=== PATIENT | female | born 1960 | race Caucasian/White ===

== ENCOUNTER 2016-12-10 23:18 | Inpatient (IN) | payer OTHER ==
[~2016-12-10] VITALS: Ht 176.5 cm; Wt 69.3 kg
[2016-12-10 23:20] VITALS: BP 159/74; PULSE 82; RESP 16; TEMP 98.1; O2SAT 96
[2016-12-11] MEDS ORDERED: TETANUS/DIPHTHERIA TOXOID ADULT 0.5 ML VIAL IM ONE
[2016-12-11] MEDS ORDERED: KETOROLAC TROMETHAMINE 30 MG/ML (IVP) VIAL IVP ONE
[2016-12-11] MEDS ORDERED: AMPICILLIN-SULBACTAM INJ 3 GM in SODIUM CHLORIDE 0.9% INJ 100 ML IV ONE ×2
--- NOTE | 2016-12-11 | PD ---
HPI Chief Complaint: Bite or Sting Time Seen by Provider: 23:50 Travel History International Travel<30 days: No Contact w/Intl Traveler<30days: No Traveled to known affect area: No History of Present Illness HPI 56yo F with PMH of CAD s/p cardiac stent, low WBC count presents to the ED with c/o increased pain and redness in her right hand. Pt was bit by her cat last night in both her right and left thumb and index finger but only the right arm is hurting. Pt states that within 24 hours, the redness and pain has traveled from her hand to past the elbow. Pt is unable to extend her right fingers. Denies any trauma, focal weakness, numbness, fever, chest pain, sob, n/v, abdominal pain. Pt is right handed. PFSH Past Medical History Hx Anticoagulant Therapy: Yes (ASA) Cardiovascular Problems: Yes (STENT) Past Surgical History Hysterectomy: Yes Social History Tobacco Use: No Allergies-Medications (Allergen,Severity, Reaction): Coded Allergies: No Known Allergies (Unverified , 12/10/16) Reported Meds & Prescriptions Reported Meds & Active Scripts Active Reported Bystolic (Nebivolol) 10 Mg Tab 10 Mg PO DIRECTED Benadryl Allergy (Diphenhydramine HCl) 25 Mg Cap 12.5 Mg PO DAILY Aspirin 81 Mg Chew 81 Mg CHEW DAILY Lipitor (Atorvastatin Calcium) 10 Mg Tab 10 Mg PO HS Review of Systems Except as stated in HPI: all other systems reviewed are Neg Physical Exam Narrative GENERAL: 56yo F in moderate distress. SKIN: Warm and dry. HEAD: Atraumatic. Normocephalic. NECK: Trachea midline. No JVD. CARDIOVASCULAR: Regular rate and rhythm. No murmur appreciated. RESPIRATORY: No accessory muscle use. Clear to auscultation. Breath sounds equal bilaterally. GASTROINTESTINAL: Abdomen soft, non-tender, nondistended. No rebound tenderness or guarding. MUSCULOSKELETAL: RUE: +Fusiform edema and redness in thumb and index finger with bite gifford on distal index finger and thumb. Erythema and pain trekking up radial aspect of right wrist, forearm, elbow to slightly past elbow joint. Pt is unable to extend her fingers. There is pain with passive extension of her fingers. TTP flexor tendons. Radial pulse intact. Sensation intact. Left hand: +Edema in left DIP of index finger with bite elyssa. NEUROLOGICAL: Awake and alert. No obvious cranial nerve deficits. Motor grossly within normal limits. Normal speech. PSYCHIATRIC: Appropriate mood and affect; insight and judgment normal. Data Data Last Documented VS Vital Signs Date Time Temp Pulse Resp B/P Pulse Ox O2 Delivery O2 Flow Rate FiO2 12/11/16 00:07 78 16 152/85 98 Room Air 12/10/16 23:20 98.1 Orders Basic Metabolic Panel (Bmp) (12/10/16 23:50) Complete Blood Count With Diff (12/10/16 23:50) Blood Culture (12/10/16 23:50) Ketorolac Inj (Toradol Inj) (12/11/16 00:00) Tetanus/Diphtheria Tox Adult (Tetanus/Di (12/11/16 00:00) Ampicillin-Sulbactam Inj (Unasyn Inj) (12/11/16 00:00) Lactic Acid Sepsis Protocol (12/10/16 23:50) Hand, Limited (2vws) (12/10/16 ) Hand, Limited (2vws) (12/10/16 ) Diphenhydramine Inj (Benadryl Inj) (12/11/16 00:45) Clindamycin Inj (Cleocin Inj) (12/11/16 01:00) Clindamycin Inj (Cleocin Inj) (12/11/16 09:00) Vancomycin Consult Pharmacy (Vancomycin (12/11/16 01:15) Admit To Inpatient (12/11/16 ) Vital Signs (Adult) Q4H (12/11/16 01:08) Activity Oob Ad Amanda (12/11/16 01:08) Diet Regular Basic (12/11/16 Breakfast) Sodium Chlor 0.9% 1000 Ml Inj (Ns 1000 M (12/11/16 01:08) Sodium Chloride 0.9% Flush (Ns Flush) (12/11/16 01:15) Sodium Chloride 0.9% Flush (Ns Flush) (12/11/16 09:00) Ondansetron Inj (Zofran Inj) (12/11/16 01:15) Bisacodyl Supp (Dulcolax Supp) (12/11/16 01:15) Comprehensive Metabolic Panel (12/12/16 06:00) Complete Blood Count With Diff (12/12/16 06:00) Scd Bilateral/Knee High MADISYN.BID (12/11/16 01:08) Darrell Bilateral/Knee High MADISYN.QSHIFT (12/11/16 01:08) Acetaminophen (Tylenol) (12/11/16 01:15) Acetamin-Hydrocod 325-5 Mg ([place] 5-325 (12/11/16 01:15) Morphine Inj (Morphine Inj) (12/11/16 01:15) Inpatient Certification (12/11/16 ) Atorvastatin (Lipitor) (12/11/16 21:00) Nebivolol (Bystolic) (12/11/16 09:00) Admit Order (Ed Use Only) (12/11/16 01:11) Labs Laboratory Tests Test 12/11/16 00:25 White Blood Count 7.3 TH/MM3 Red Blood Count 5.09 MIL/MM3 Hemoglobin 14.2 GM/DL Hematocrit 41.7 % Mean Corpuscular Volume 82.0 FL Mean Corpuscular Hemoglobin 28.0 PG Mean Corpuscular Hemoglobin 34.1 % Concent Red Cell Distribution Width 13.1 % Platelet Count 133 TH/MM3 Mean Platelet Volume 10.5 FL Neutrophils (%) (Auto) 73.3 % Lymphocytes (%) (Auto) 17.9 % Monocytes (%) (Auto) 7.4 % Eosinophils (%) (Auto) 0.9 % Basophils (%) (Auto) 0.5 % Neutrophils # (Auto) 5.4 TH/MM3 Lymphocytes # (Auto) 1.3 TH/MM3 Monocytes # (Auto) 0.5 TH/MM3 Eosinophils # (Auto) 0.1 TH/MM3 Basophils # (Auto) 0.0 TH/MM3 CBC Comment DIFF FINAL Differential Comment Sodium Level 142 MEQ/L Potassium Level 3.9 MEQ/L Chloride Level 109 MEQ/L Carbon Dioxide Level 25.9 MEQ/L Anion Gap 7 MEQ/L Blood Urea Nitrogen 14 MG/DL Creatinine 0.92 MG/DL Estimat Glomerular Filtration 63 ML/MIN Rate Random Glucose 100 MG/DL Lactic Acid Level 0.7 mmol/L Calcium Level 8.7 MG/DL MDM Medical Decision Making Medical Screen Exam Complete: Yes Emergency Medical Condition: Yes Differential Diagnosis Lymphangitis vs. flexor tenosynovitis vs. cellulitis Narrative Course 56yo F with right arm infection s/p cat bite 24 hours ago. Pt states the erythema spread quickly and pain worsened within last 3 hours. I was concern about flexor tenosynovitis so I consulted hand surgery Dr. Aly who states that it is early for flexor tenosynovitis and to admit pt to hospitalist, agreed with IV unasyn and elevate right upper extremity. Pt was given toradol 30mg IV for pain and reevaluated at bedside. Pt has improved and pt then informed me that after the tetanus injection, her throat and lips started to itch but it resolved on its own. At that time, pt had unasyn for a few minutes already. Pt now states her left arm is itchy so I stopped the unasyn. She had about half of the medicine already. Denies any sob and lungs were clear. Uvula midline with no swelling. No lip swelling. Mild erythema on left arm but no urticaria. Will give diphenhydramine 50mg IV. Will give clindamycin instead. Unsure if the reaction is from unasyn. Xray right hand showed no acute abnormality. Xray of left hand showed soft tissue swelling, specifically distal pointer finger. No radiopaque foreign body. Labs reviewed, no leukocytosis. Lactic acid 0.7. BMP unremarkable. Pt reevaluated after diphenhydramine and states itching resolved. Discussed with Dr. Sanchez and accepted for admission. Diagnosis Primary Impression: Cat bite of right hand with infection Qualified Code: S61.451A - Cat bite of right hand with infection, initial encounter Admitting Information Admitting Physician Requests: Admit Zoey Alvarado DO Dec 11, 2016 00:00
[2016-12-11 00:07] VITALS: BP 152/85; PULSE 78; RESP 16; O2SAT 98
[2016-12-11] MEDS ORDERED: BYST10TA2 PO (00:07)
[2016-12-11] MEDS ORDERED: BENA25CA4 PO (00:07)
[2016-12-11] MEDS ORDERED: ASPI81CH CHEW (00:07)
[2016-12-11] MEDS ORDERED: LIPI10TA PO (00:07)
--- NOTE | 2016-12-11 00:31 | RADRPT ---
EXAM DATE/TIME: 12/10/2016 23:56 [facility] COMPARISON: No previous studies available for comparison. INDICATIONS : Pt bitten by cat three hours ago. Redness, pain, and swelling up right arm from hand to forearm. MEDICAL HISTORY : None. SURGICAL HISTORY : None. ENCOUNTER: Initial ACUITY: 1 day PAIN SCORE: 9/10 LOCATION: Right hand FINDINGS: Two view examination of the right hand demonstrates no soft tissue swelling, dislocation, or fracture . The joint spaces are maintained. Bony mineralization is normal. CONCLUSION: No perceptible acute abnormality. Andre Kaiser MD on December 11, 2016 at 0:29 Board Certified Radiologist. This report was verified electronically.
--- NOTE | 2016-12-11 00:32 | RADRPT ---
EXAM DATE/TIME: 12/11/2016 00:03 [facility] COMPARISON: No previous studies available for comparison. INDICATIONS : Pt bitten by cat three hours ago. Redness, pain, and swelling to left hand. MEDICAL HISTORY : None. SURGICAL HISTORY : None. ENCOUNTER: Initial ACUITY: 1 day PAIN SCORE: 6/10 LOCATION: Left hand FINDINGS: Bones of the left hand are intact and normally aligned. No significant arthropathy seen. There does a ppear to be soft tissue swelling distally of the pointer finger. I don't see a radiopaque foreign bod y. CONCLUSION: 1. Apparent soft tissue swelling, specially distally the pointer finger. 2. No radiopaque foreign body or acute bony abnormality demonstrated. Andre Kaiser MD on December 11, 2016 at 0:30 Board Certified Radiologist. This report was verified electronically.
[2016-12-11 00:33] LABS: AUTOMATED NEUTROPHIL # 5.4 TH/MM3 (1.8-7.7); BASOPHIL % 0.5 % (0.0-2.0); EOSINOPHIL # 0.1 TH/MM3 (0-0.4); EOSINOPHIL % 0.9 % (0.0-4.0); HEMATOCRIT 41.7 % (35.0-46.0); HEMO FLAGS DIFF FINAL; LYMPH % 17.9 % (9.0-44.0); LYMPHOCYTE # 1.3 TH/MM3 (1.0-4.8); MEAN CORPUSCULAR HGB CONC 34.1 % (32.0-36.0); MONO % 7.4 % (0.0-8.0); NEUT % 73.3 % (16.0-70.0); PLATELET COUNT 133 TH/MM3 (150-450); RED BLOOD COUNT 5.09 MIL/MM3 (4.00-5.30); RED CELL DISTRIBUTION WIDTH 13.1 % (11.6-17.2); WHITE BLOOD COUNT 7.3 TH/MM3 (4.0-11.0)
[2016-12-11] MEDS ORDERED: diphenhydrAMINE HCL 50 MG/ML VIAL IV PUSH ONE (00:45)
[2016-12-11 00:59] LABS: BICARBONATE 25.9 MEQ/L (21.0-32.0); POTASSIUM 3.9 MEQ/L (3.5-5.1)
[2016-12-11] MEDS ORDERED: CLINDAMYCIN INJ 600 MG in SODIUM CHLORIDE 0.9% INJ 100 ML IV ONE (01:00)
[2016-12-11] MEDS ORDERED: BISACODYL 10 MG SUPP PR PRN (01:15)
[2016-12-11] MEDS ORDERED: ONDANSETRON HCL 4 MG/2 ML VIAL IVP PRN (01:15)
[2016-12-11] MEDS ORDERED: MORPHINE SULFATE 4 MG/ML INJ IV PRN (01:15)
[2016-12-11] MEDS ORDERED: Vancomycin Consult Pharmacy 1 EA OTHER SCH (01:15)
[2016-12-11] MEDS ORDERED: ACETAMINOPHEN/HYDROcodone 325 MG/5 MG TAB PO PRN (01:15)
[2016-12-11] MEDS ORDERED: SODIUM CHLORIDE 0.9% FLUSH 5 ML FLUSH FLUSH PRN (01:15)
[2016-12-11] MEDS ORDERED: VANCOMYCIN 1,000 MG/NS 250 ML IV ONE ×2 (02:00)
[2016-12-11] MEDS: SODIUM CHLOR 0.9% 1000 ML INJ 1,000 ML IV SCH ×3 (02:11→22:06)
--- NOTE | 2016-12-11 02:16 | HHI.HP ---
[facility] Admission Diagnosis Lymphangitis Diagnoses: (1) Cat bite of finger Diagnosis: Principal (2) Cellulitis Diagnosis: Principal (3) HTN (hypertension) Diagnosis: Principal (4) Thrombocytopenia Diagnosis: Principal Travel History International Travel<30 Days: No Contact w/Intl Traveler <30 Da: No Traveled to Known Affected Are: No History of Present Illness This is a 56-year-old female with a PMH of HTN and CAD s/p Stent who came to the ER w/ complaints of right hand and left finger pain after cat bite yesterday. Pt states her cat had gotten outside by accident and when she went to pick the cat up it got scared and bit her. Suffered bite to Right and Left Thumb/Index Finger. Right hand more swollen than right w/ erythema up right arm. Denies fever or chills. Cat up to date on all vaccines. On arrival, BP 159/74, HR 82, O2 sat 96% on RA, Afebrile. WBC normal. Platelets 133, no previous labs for comparison. Chemistry essentially unremarkable except for GFR of 63. Left Hand X-ray with no acute abnormality. Right Hand X-ray with apparent soft tissue swelling, especially distally pointer finger, no foreign body found. Dr. Aly consulted by ER physician, will evaluate in am. S/p Unasyn and Tetanus in ER, with subsequent itching and mild redness ? allergy to Unasyn vs Tetanus. S/p Benadryl w/ improvement. Switched to IV Clinda. Review of Systems Except as stated in HPI: all other systems reviewed are Neg ROS: 14 point review of systems otherwise negative. Past Family Social History Past Medical History PMH: HTN and CAD s/p Stent Past Surgical History PAST SURGICAL HISTORY: Hysterectomy Allergies: Coded Allergies: No Known Allergies (Unverified , 12/10/16) Family History PAST FAMILY HISTORY: Reviewed. No h/o DM or CAD Social History PAST SOCIAL HISTORY: Negative for alcohol, tobacco or drugs. Physical Exam Vital Signs Vital Signs Date Time Temp Pulse Resp B/P Pulse Ox O2 Delivery O2 Flow Rate FiO2 12/11/16 00:07 78 16 152/85 98 Room Air 12/11/16 00:00 73 15 12/10/16 23:20 98.1 82 16 159/74 96 Room Air Physical Exam PE: GENERAL: Pleasant middle-aged white female in no acute distress. at bedside. HEENT: PERRLA, EOMI. No scleral icterus or conjunctival pallor. No lid lag or facial droop. CARDIOVASCULAR: Regular rate and rhythm. No obvious murmurs to auscultation. No chest tenderness to palpation. RESPIRATORY: No obvious rhonchi or wheezing. Clear to auscultation. Breath sounds equal bilaterally. GASTROINTESTINAL: Abdomen soft, non-tender, nondistended. BS normal. MUSCULOSKELETAL: RUE w/ bite gifford to right index finger/thumb, mild swelling, erythema/tracking up right arm, improved since arrival. Left index/thumb bite, no significant erythema/edema. Pulses intact NEUROLOGICAL: Awake, alert and oriented x4. No focal neurologic deficits. Moving both upper and lower extremities spontaneously. Laboratory Laboratory Tests Test 12/11/16 00:25 White Blood Count 7.3 Red Blood Count 5.09 Hemoglobin 14.2 Hematocrit 41.7 Mean Corpuscular Volume 82.0 Mean Corpuscular Hemoglobin 28.0 Mean Corpuscular Hemoglobin 34.1 Concent Red Cell Distribution Width 13.1 Platelet Count 133 Mean Platelet Volume 10.5 Neutrophils (%) (Auto) 73.3 Lymphocytes (%) (Auto) 17.9 Monocytes (%) (Auto) 7.4 Eosinophils (%) (Auto) 0.9 Basophils (%) (Auto) 0.5 Neutrophils # (Auto) 5.4 Lymphocytes # (Auto) 1.3 Monocytes # (Auto) 0.5 Eosinophils # (Auto) 0.1 Basophils # (Auto) 0.0 CBC Comment DIFF FINAL Differential Comment Sodium Level 142 Potassium Level 3.9 Chloride Level 109 Carbon Dioxide Level 25.9 Anion Gap 7 Blood Urea Nitrogen 14 Creatinine 0.92 Estimat Glomerular Filtration 63 Rate Random Glucose 100 Lactic Acid Level 0.7 Calcium Level 8.7 Date/Time Procedure Status Source Growth 12/11/16 00:25 Aerobic Blood Culture Received Blood Peripheral Pending 12/11/16 00:25 Anaerobic Blood Culture Received Blood Peripheral Pending Result Diagram: 12/11/16 0025 12/11/16 002 Assessment and Plan Problem List: (1) Cat bite of finger ICD Code: S61.259A Status: Acute (2) Cellulitis ICD Code: L03.90 Status: Acute (3) Thrombocytopenia ICD Code: D69.6 Status: Acute (4) HTN (hypertension) ICD Code: I10 Status: Acute Assessment and Plan A/P: 1. Cat Bite: Bilateral index/thumb, w/ erythema/edema right > left, s/p cat bite from own cat, up to date on vaccinations per pt. Afebrile, no leukocytosis. X-ray Right Hand w/ soft tissue swelling initially of the distal pointer finger, no radiopaque foreign body noted. X-ray Left Hand negative for acute findings, images reviewed by me. Dr. Aly consulted by ER physician, will evaluate in am. S/p Unasyn however stopped due to ? allergic reaction. Switched to IV Clinda, will continue w/ IV Abx. 2. Cellulitis: secondary to above, erythema w/ streaking up entire right upper extremity, now improved. Continue IV Abx as above. 3. Thrombocytopenia: Platelets 133, no previous labs for comparison. No active bleeding. Repeat labs in am. 4. HTN: BP 150's systolic. Resume home Bystolic. Monitor BP. 5. DVT Prophylaxis: SCD/Teds. 6. Social work for d/c planning as needed. 7. Case discussed w/ ER physician at length. Physician Certification 2 Midnight Certification Type: Admission for Inpatient Services Order for Inpatient Services The services are ordered in accordance with Medicare regulations or non- Medicare payer requirements, as applicable. In the case of services not specified as inpatient-only, they are appropriately provided as inpatient services in accordance with the 2-midnight benchmark. Estimated LOS (days): 2 days is the estimated time the patient will need to remain in the hospital, assuming treatment plan goals are met and no additional complications. Post-Hospital Plan: Not yet determined Estefany Sanchez MD Dec 11, 2016 02:16
[2016-12-11 05:38] VITALS: BP 123/62; PULSE 67; RESP 16; O2SAT 97
[2016-12-11] MEDS: SODIUM CHLORIDE 0.9% FLUSH 5 ML FLUSH FLUSH SCH ×2 (09:00→21:17)
[2016-12-11 09:38] VITALS: BP 133/73; PULSE 78; RESP 16; O2SAT 97
[2016-12-11] MEDS: NEBIVOLOL 10 MG TAB PO SCH ×2 (09:54→21:00)
[2016-12-11] MEDS: ACETAMINOPHEN 325 MG TAB PO PRN ×2 (09:54→22:05)
[2016-12-11] MEDS: CLINDAMYCIN INJ 900 MG in SODIUM CHLORIDE 0.9% INJ 100 ML IV SCH ×2 (10:18→17:00)
[2016-12-11 11:13] VITALS: BP 131/80; PULSE 64; RESP 20; TEMP 96.8; O2SAT 97
[2016-12-11] MEDS ORDERED: AMPICILLIN-SULBACTAM INJ 3 GM VIAL IM SCH (13:00)
--- NOTE | 2016-12-11 13:27 | MB ---
cc: DOMENICA OVALLE III, M.D. DATE OF CONSULTATION: 12/11/2016 HISTORY OF PRESENT ILLNESS The patient is a friendly 56-year-old female who was bitten by a cat when she picked it up to protect it and startled it accidentally and it bit her thumbs and index fingers. She developed some cellulitis worse in the right thumb than anywhere else, but the patient states that the overall process is improved significantly compared to last night. PAST MEDICAL HISTORY 1. Hypertension. 2. Coronary artery disease status post percutaneous stenting. PAST SURGICAL HISTORY Hysterectomy. ALLERGIES No known drug allergies. FAMILY HISTORY Noncontributory to this injury/illness. SOCIAL HISTORY She does not smoke. REVIEW OF SYSTEMS She is not complaining of any headaches, double or blurry vision. She is not complaining of any coughing, wheezing or shortness of breath. She is not complaining of any chest pain or palpitations. She is not complaining of any nausea, vomiting, abdominal pain. She is not complaining of any burning, frequency or urgency with urination. She is not complaining of any spine, neck or back pain. She is not complaining of any lower extremity pain, weakness or swelling. She is not complaining of any anxiety, depression or suicidal ideations. She is not complaining of any night sweats, fevers or chills. IMAGING X-ray examination was performed on the right hand and reveals no perceptible or acute abnormality per the report. X-rays of the left hand reveal apparent soft tissue swelling especially in distally in the pointer finger. No radiopaque foreign body or acute bony abnormality identified. LABORATORY The laboratory studies reveal white blood cell count of 7300. PHYSICAL EXAMINATION GENERAL: Well-developed, well-nourished, no apparent distress, very pleasant, sitting comfortably in her bed. VITAL SIGNS: Temperature 98.1, heart rate 78, blood pressure 133/73. UPPER EXTREMITIES: Examination of the right upper extremity and hand reveals an edematous but soft and erythematous right thumb into the thenar eminence. Flexion and extension are intact. There is no fluctuance or induration. There is no felon. There is no drainage. There is no tenderness within any of the joints of the right hand or the left hand. The left index finger has puncture wounds near the fingernail with some surrounding erythema but no apparent involvement of the PIP joint. There is again no evidence of any fluctuance or fluid collection. On the right upper extremity there are some small laceration that are healed over without any surrounding erythema. There is palpable radial pulse on the right. There is no proximal lymphangitic streaking or epitrochlear adenopathy. The patient is neurovascularly intact throughout. IMPRESSION Right thumb and hand cellulitis, improved as per the patient. PLAN/RECOMMENDATIONS My recommendation is for strict elevation as well as IV antibiotics. I recommend this for duration as long as the patient has any redness and swelling. I discussed this with the patient. She understands and agrees and I have ordered the IV pole sling elevation of the hand to use full-time. MD SCOT Ochoa III/MIKAYLA /12:12 PM /1:02 PM
[2016-12-11 16:00] VITALS: BP 158/82; PULSE 54; RESP 18; TEMP 97.1; O2SAT 98
--- NOTE | 2016-12-11 17:21 | HHI.PR ---
Objective Vital Signs Date Time Temp Pulse Resp B/P Pulse Ox O2 Delivery O2 Flow Rate FiO2 12/11/16 11:13 96.8 64 20 131/80 97 12/11/16 10:40 16 12/11/16 09:38 78 16 133/73 97 Room Air 12/11/16 05:38 67 16 123/62 97 Room Air 12/11/16 00:07 78 16 152/85 98 Room Air 12/11/16 00:00 73 15 12/10/16 23:20 98.1 82 16 159/74 96 Room Air Result Diagram: 12/11/16 0025 12/11/16 0025 Objective Remarks Right thumb, hand, and left index finger all have significantly improved since this morning (9 hours ago) no fluctuant areas, no abscesses, no evidence of joint involvement no streaking no subQ emphysema almost full AROM Assessment and Plan Problem List: (1) Cat bite of right hand with infection Status: Acute Plan: if pt continues to improve overnight, may d/c home in the AM if ok with primary doctor and send her home with 10 days of Augmentin by mouth; if any erythema persists or more than just mild edema, hold d/c and continue strict elevation and IV abx (2) Cat bite of finger Status: Acute (3) Cellulitis Status: Acute Problem Qualifiers (1) Cat bite of right hand with infection: Qualified Code: S61.451A - Cat bite of right hand with infection, initial encounter Robb Slade III, MD Dec 11, 2016 17:21
[2016-12-11 20:00] VITALS: BP 143/74; PULSE 65; RESP 16; TEMP 96; O2SAT 98
[2016-12-11] MEDS ORDERED: ATORVASTATIN 10 MG TAB PO SCH (21:00)
[2016-12-11] MEDS ORDERED: ASPIRIN EC 325 MG TABEC PO ONE (21:45)
[2016-12-11] MEDS ORDERED: diphenhydrAMINE HCL 50 MG CAP PO PRN (21:45)
[2016-12-12] VITALS: BP 118/69; PULSE 64; RESP 16; TEMP 97.2; O2SAT 97
[2016-12-12] MEDS: CLINDAMYCIN INJ 900 MG in SODIUM CHLORIDE 0.9% INJ 100 ML IV SCH ×2 (01:09→08:52)
[2016-12-12] MEDS ORDERED: VANCOMYCIN INJ 1,250 MG in SODIUM CHLOR 0.9% 250 ML INJ 250 ML IV SCH (02:00)
[2016-12-12 04:00] VITALS: BP 134/76; PULSE 57; RESP 15; TEMP 97; O2SAT 99
[2016-12-12 06:30] LABS: AUTOMATED NEUTROPHIL # 1.5 TH/MM3 (1.8-7.7); BASOPHIL % 1.3 % (0.0-2.0); EOSINOPHIL # 0.1 TH/MM3 (0-0.4); EOSINOPHIL % 4.2 % (0.0-4.0); HEMATOCRIT 36.6 % (35.0-46.0); HEMO FLAGS DIFF FINAL; LYMPH % 37.6 % (9.0-44.0); LYMPHOCYTE # 1.2 TH/MM3 (1.0-4.8); MEAN CELL VOLUME 83.1 FL (80.0-100.0); MEAN CORPUSCULAR HEMOGLOBIN 27.8 PG (27.0-34.0); MEAN CORPUSCULAR HGB CONC 33.4 % (32.0-36.0); MONO % 9.6 % (0.0-8.0); NEUT % 47.3 % (16.0-70.0); PLATELET COUNT 112 TH/MM3 (150-450); RED CELL DISTRIBUTION WIDTH 13.2 % (11.6-17.2); WHITE BLOOD COUNT 3.2 TH/MM3 (4.0-11.0)
[2016-12-12 06:58] LABS: ANION GAP 9 MEQ/L (5-15); AST (GOT) 84 U/L (15-37); BICARBONATE 23.9 MEQ/L (21.0-32.0); BLOOD UREA NITROGEN 7 MG/DL (7-18); CHLORIDE 111 MEQ/L (98-107); GLOMERULAR FILTRATION RATE 76 ML/MIN (>89); POTASSIUM 3.8 MEQ/L (3.5-5.1); SODIUM (NA) 144 MEQ/L (136-145)
[2016-12-12 07:01] LABS: ALKALINE PHOSPHATASE 36 U/L (45-117); ALT (GPT) 73 U/L (10-53); TOTAL BILIRUBIN ADULT 0.4 MG/DL (0.2-1.0)
[2016-12-12 08:25] VITALS: BP 123/70; PULSE 57; RESP 18; TEMP 97.1; O2SAT 98
[2016-12-12] MEDS: SODIUM CHLORIDE 0.9% FLUSH 5 ML FLUSH FLUSH SCH (08:52)
[2016-12-12] MEDS: NEBIVOLOL 10 MG TAB PO SCH (09:00)
[2016-12-12] MEDS ORDERED: CLIN1CAP6 PO (11:07)
--- NOTE | 2016-12-12 11:08 | HHI.DCPOC ---
Discharge Care Plan Goals to Promote Your Health * To prevent worsening of your condition and complications * To maintain your health at the optimal level Directions to Meet Your Goals Take your medications as prescribed Follow your dietary instruction Follow activity as directed Keep your appointments as scheduled Take your immunizations and boosters as scheduled If your symptoms worsen call your PCP, if no PCP go to Urgent Care Center or Emergency Room Smoking is Dangerous to Your Health. Avoid second hand smoke Call the 24-hour hour crisis hotline for domestic abuse at Lashaun Edgar MD Dec 12, 2016 11:08
[2016-12-12] MEDS ORDERED: NORC5TAB PO (11:09)
--- NOTE | 2016-12-12 11:10 | HHI.PR ---
Subjective Remarks Feels much better. Swelling improved significantly has full range of motion. No more erythema. No fever or chills. Wants to go home. Objective Vitals Vital Signs Date Time Temp Pulse Resp B/P Pulse Ox O2 Delivery O2 Flow Rate FiO2 12/12/16 08:25 97.1 57 18 123/70 98 12/12/16 04:00 97.0 57 15 134/76 99 12/12/16 00:00 97.2 64 16 118/69 97 12/11/16 20:00 96.0 65 16 143/74 98 12/11/16 20:00 96.0 65 16 143/74 98 12/11/16 16:00 97.1 54 18 158/82 98 12/11/16 11:13 96.8 64 20 131/80 97 I/O 12/11/16 12/11/16 12/11/16 12/12/16 12/12/16 12/12/16 07:00 15:00 23:00 07:00 15:00 23:00 Intake Total 360 ml 1280 ml 1040 ml Output Total 600 ml 525 ml Balance -240 ml 755 ml 1040 ml Intake Oral 360 ml 480 ml 240 ml IV Total 800 ml 800 ml Output Urine Total 600 ml 525 ml # Voids 1 Result Diagram: 12/12/16 0550 12/12/16 0550 Imaging Last Impressions Hand X-Ray 12/10/16 0000 Signed Impressions: Service Date/Time: Sunday, December 11, 2016 00:03 - CONCLUSION: 1. Apparent soft tissue swelling, specially distally the pointer finger. 2. No radiopaque foreign body or acute bony abnormality demonstrated. Andre Kaiser MD Objective Remarks GENERAL: Pleasant middle-aged white female in no acute distress. at bedside. HEENT: PERRLA, EOMI. No scleral icterus or conjunctival pallor. No lid lag or facial droop. CARDIOVASCULAR: Regular rate and rhythm. No obvious murmurs to auscultation. No chest tenderness to palpation. RESPIRATORY: No obvious rhonchi or wheezing. Clear to auscultation. Breath sounds equal bilaterally. GASTROINTESTINAL: Abdomen soft, non-tender, nondistended. BS normal. MUSCULOSKELETAL: RUE w/ bite gifford to right index finger/thumb, mild swelling, erythema/tracking up right arm, improved significantly and not noticeble today. Left index/thumb bite, no significant erythema/edema. Pulses intact. NEUROLOGICAL: Awake, alert and oriented x4. No focal neurologic deficits. Moving both upper and lower extremities spontaneously. A/P Problem List: (1) Cat bite of finger ICD Code: S61.259A Status: Acute (2) Cellulitis ICD Code: L03.90 Status: Acute (3) Thrombocytopenia ICD Code: D69.6 Status: Acute (4) HTN (hypertension) ICD Code: I10 Status: Acute Assessment and Plan 1. Cat Bite: Bilateral index/thumb, w/ erythema/edema right > left, s/p cat bite from own cat, up to date on vaccinations per pt. Afebrile, no leukocytosis. X-ray Right Hand w/ soft tissue swelling initially of the distal pointer finger, no radiopaque foreign body noted. X-ray Left Hand negative for acute findings, images reviewed by me. Dr. Aly consulted by ER physician, will evaluate in am. S/p Unasyn however stopped due to ? allergic reaction. Switched to IV Clinda. Discharge home on clinda po. To follow up with hand surgeon as OP. 2. Cellulitis: secondary to above, erythema w/ streaking up entire right upper extremity, now improved. Continue IV Abx as above. 3. Thrombocytopenia: Platelets 133, no previous labs for comparison. No active bleeding. Repeat labs in am stable. 4. HTN: BP 150's systolic. Resume home Bystolic. Monitor BP. 5. DVT Prophylaxis: SCD/Teds. 6. Social work for d/c planning as needed. 7. Case discussed with the patient, nurse, family at bedside. Improved significantly. Discharge Planning DC home to follow up with PCP and consultants as OP Meds per med reconciliations activity :ad umm Diet Lashaun Gale MD Dec 12, 2016 11:10
[2016-12-12 12:17] VITALS: BP 121/69; PULSE 59; RESP 18; TEMP 97.7; O2SAT 98
[2016-12-12] MEDS ORDERED: VANCOMYCIN 1,000 MG/NS 250 ML IV SCH ×2 (14:00)
[2016-12-13] MEDS ORDERED: ASPIRIN 81 MG CHEW TAB CHEW SCH (09:00)
[2016-12-14] MEDS ORDERED: PHARMACY ORDERED LAB XX ONE (01:45)
== END 2016-12-12 13:04 | disposition home or self-care (01) | DRG 605 ==
LOC: NEPA 23:18 → NEDA 12-11 01:13 → NEDH 12-11 05:13 → HOCB 12-11 11:13
PROVIDERS: ADMIT Hospitalist; ATTEND Hospitalist
DX: S61.451A Open bite of right hand, initial encounter (principal); D69.6 Thrombocytopenia, unspecified; L03.113 Cellulitis of right upper limb; I10 Essential (primary) hypertension; I25.10 Atherosclerotic heart disease of native coronary artery without angina pectoris; L03.011 Cellulitis of right finger; L29.8 Other pruritus; T36.0X5A Adverse effect of penicillins, initial encounter; Y92.238 Other place in hospital as the place of occurrence of the external cause; W55.01XA Bitten by cat, initial encounter; Z95.5 Presence of coronary angioplasty implant and graft
CPT/HCPCS: 73120; 80048; 80053; 83605; 85025; 87040; 90471; 90714; 96365; 96375; J0295; J1200; J1885; J3370; J7030; J7050; Q0163